=== PATIENT | male | born 1960 | race Caucasian/White ===

== ENCOUNTER 2023-05-27 14:47 | Emergency (ER) | payer OTHER, SELFPAY ==
[2023-05-27 14:52] VITALS: BP 121/73; PULSE 83; RESP 18; TEMP 36.5; O2SAT 96; BMI 28.9
--- NOTE | 2023-05-27 15:01 | ED_ITS ---
HPI - General Adult General Chief complaint: Skin/Abscess/Foreign Body Stated complaint: LASCERATION RIGHT SIDE OF FACE Time Seen by Provider: 05/27/23 14:56 Source: patient and family Mode of arrival: walk-in Limitations: no limitations History of Present Illness HPI narrative: 62-year-old male presents with laceration to the right cheek, states he was working in a ladder fell back striking him in the face. No loss of consciousness. He denies headache or visual disturbance. He has not on any blood thinners. Patient was advised the laceration would likely need sutures and presents to the Emergency Room. He has no other concerns or complaints. Very minimal pain localized to soft tissue injury. Patient denies any dental injury or facial numbness. Denies any loss of vision denies neck pain. Patient states he did not fall from a ladder. Location: Reports face Related Data Allergies Allergy/AdvReac Type Severity Reaction Status Date / Time No Known Drug Allergies Allergy Verified 05/27/23 14:56 Review of Systems ROS Constitutional Denies: fever or chills Eyes Denies: change in vision, blurry vision, blind spots, light sensitivity, eye discomfort or eye discharge Ears, nose, mouth, and throat Denies: neck pain Cardiovascular Denies: chest pain Respiratory Denies: shortness of breath or cough Gastrointestinal Denies: abdominal pain or nausea Musculoskeletal Denies: back pain, neck pain or extremity pain Integumentary/Breast Reports: other (positive laceration right cheek); Denies: rash Neurological Denies: headache or numbness in extremities Psychiatric Denies: anxiety Hematologic/Lymphatic Denies: easy bruising PFSH PFSH Social History Smoking status: Never smoker Exam Narrative Exam Narrative: Nurses notes and vital signs reviewed and patient is not hypoxic. General: The patient appears well and in no apparent distress. Patient is resting comfortably on cart. Skin: Warm, dry, no pallor noted.right cheek laceration noted Head: Normocephalic, atraumatic with exception of 1.5 cm lightnning bolt shaped laceration to the right cheek. Minimal bleeding controlled with direct pressure. No evidence of secondary head injury Neck: Supple, trachea mid-line, no tenderness, no lymphadenopathy Eye: Pupils are equal, round and reactive to light, EOMI, no palsy, no diplopia. Patient has a small subconjunctival hemorrhage to the lateral sclera. No complaint of visual disturbance or eye foreign body. Ears, Nose, Mouth, and Throat: TM are clear,moderate cerumen in the right, left is with normal light reflex, oral mucosa is moist, no posterior oropharynx erythema or hypertrophy, uvula is mid-line Cardiovascular: Regular Rate and Rhythm Respiratory: Patient is in no distress, no accessory muscle use, lungs are clear to auscultation, no wheezing, rales or rhonchi. Musculoskeletal: normal ROM, no tenderness, no swelling Neurological: A&O x4, facial sensation equal and symmetric maxiillary frontal and mandibular. Psychiatric: Cooperative Constitutional Vital Signs, click to edit/add: Last Vital Signs Temp 97.7 F 05/27/23 14:52 Pulse 83 05/27/23 14:52 Resp 18 05/27/23 14:52 BP 121/73 05/27/23 14:52 Pulse Ox 96 05/27/23 14:52 O2 Del Method Room Air 05/27/23 14:52 Course Vital Signs Vital signs: Vital Signs Temperature 97.7 F 05/27/23 14:52 Pulse Rate 83 05/27/23 14:52 Respiratory Rate 18 05/27/23 14:52 Blood Pressure 121/73 05/27/23 14:52 Pulse Oximetry 96 05/27/23 14:52 Oxygen Delivery Method Room Air 05/27/23 14:52 Temperature 97.7 F 05/27/23 14:52 Pulse Rate 83 05/27/23 14:52 Respiratory Rate 18 05/27/23 14:52 Blood Pressure 121/73 05/27/23 14:52 Pulse Oximetry 96 05/27/23 14:52 Oxygen Delivery Method Room Air 05/27/23 14:52 Medical Decision Making [facility] Narrative Medical decision making narrative: tetanus updated, patient has a 1.5 cm labeled shaped laceration to the right cheek, small subconjunctival hemorrhage lateral sclera, patient has no eye complaints or concerns. Denies discomfort or difficulty with vision. Believe his eyes closed, states she did not have any loss of consciousness. Wound care discussed, suture repair reviewed. Discussed suture removal in 5-7 days. Recheck with PCP. patient without significant at injury warranting a CT of the brain. Patient with benign exam but did have facial laceration requiring sutures. Laceration repaired. The patient is to followup with primary care physician in next 5-7 days or to return to the emergency department should any of the signs or symptoms worsen or new symptoms develop. Patient had questions answered. The patient agrees with the following Diagnosis and Treatment plan and the patient will be discharged home. Discharge Plan Discharge Chief Complaint: Skin/Abscess/Foreign Body Clinical Impression: Subconjunctival hemorrhage, Facial laceration Patient Disposition: Home, Self-Care Time of Disposition Decision: 15:40 Condition: Good Instructions: Laceration (ED), Subconjunctival Hemorrhage (ED) Additional Instructions: Cchsas-[id number] with your family doctor urgent care or Emergency Room in 5-7 days for suture removal Stand Alone Forms: Portal Instructions Referrals: Physician,Non-Staff, MD [Primary Care Provider] - 1 week Discharge Date/Time: 05/27/23 15:30 Procedures ED Laceration Laceration Laceration 1: Additional comments: Laceration repair: Done under sterile conditions. The use of Betadine was used to prep and clean the area. Local injection with lidocaine 1% was used, approximately 2 cc. The wound was irrigated copiously with normal saline. The wound was explored there was no evidence of foreign material. The laceration was approximated with 6-0 nylon. 5 simple interrupted sutures were placed. Patient tolerated the procedure well. The patient was neurovascularly intact post. the patient had bacitracin applied to the laceration and a dry sterile dressing was place. The patient will need to follow-up in the next 5-7 days for removal.
[2023-05-27] MEDS: ADACEL DIPH,PERTUSS(ACELL),TET VAC/PF 0.5 ML ADULT SYRINGE IM (15:27)
[2023-05-27] MEDS: LIDOCAINE HCL 1% PF 50 MG/5 ML VIAL INJ (15:30)
== END 2023-05-27 15:30 | disposition home or self-care (01) ==
PROVIDERS: Emergency Provider Emergency Medicine
DX: S01.411A Laceration without foreign body of right cheek and temporomandibular area, initial encounter (principal); Z23 Encounter for immunization; W20.8XXA Other cause of strike by thrown, projected or falling object, initial encounter; H11.30 Conjunctival hemorrhage, unspecified eye
CPT/HCPCS: 12011; 90471; 90715; 99283

== ENCOUNTER 2024-03-15 11:36 | Emergency (ER) | payer OTHER, SELFPAY ==
[2024-03-15 11:44] VITALS: BP 126/96; PULSE 69; TEMP 37.3; O2SAT 95; BMI 30.6
--- NOTE | 2024-03-15 11:51 | ED.WOUNDLAC1 ---
HPI - Wound/Laceration General Chief Complaint: Wound/Laceration Stated Complaint: LT HAND INJURY Time Seen by Provider: 03/15/24 11:44 Source: patient Mode of arrival: walk-in Limitations: no limitations History of Present Illness HPI narrative: 63-year-old male presents for laceration to the dorsum of his left hand. This was sustained on the water coming out of the water pressure when it accidentally contacted his hand. This happened just before coming into the emergency department. No other injuries were sustained. No weakness or numbness in his hand. Related Data Home Medications ?Medication ?Instructions ?Recorded ?Confirmed meloxicam 7.5 mg tablet 7.5 mg PO DAILY 03/15/24 03/15/24 sildenafil (pulm.hypertension) 20 20 mg PO DAILY 03/15/24 03/15/24 mg tablet Allergies Allergy/AdvReac Type Severity Reaction Status Date / Time No Known Drug Allergies Allergy Verified 05/27/23 14:56 Review of Systems ROS Narrative A ten point review of systems is negative except as noted above. PFSH PFSH Social History Smoking status: Never smoker Exam Narrative Exam Narrative: Nurses note and vital signs reviewed and patient is not hypoxic. General: The patient appears well and in no apparent distress. Patient is resting comfortably on cart. Skin: Warm, dry, no pallor noted. There is no rash noted. Head: Normocephalic, atraumatic Eye: Normal conjunctiva, no drainage Ears, Nose, Mouth, and Throat: oral mucosa is moist. Nares patent. Cardiovascular: Regular Rate and Rhythm Respiratory: Patient is in no distress, no accessory muscle use GI: Soft and nontender Musculoskeletal: There is a C-shaped 2.5 cm laceration on the dorsum of his left hand at the base of the third finger. Fingers have full range of motion. There are 2 tiny associated abrasions, otherwise no other wounds. Neurological: A&O, normal speech Psychiatric: Cooperative Constitutional Vital Signs, click to edit/add: Last Vital Signs Temp 99.1 F 03/15/24 11:44 Pulse 69 03/15/24 11:44 Resp 18 03/15/24 11:44 BP 126/96 H 03/15/24 11:44 Pulse Ox 95 03/15/24 11:44 O2 Del Method Room Air 03/15/24 11:44 Course Vital Signs Vital signs: Vital Signs Temperature 99.1 F 03/15/24 11:44 Pulse Rate 69 03/15/24 11:44 Respiratory Rate 18 03/15/24 11:44 Blood Pressure 126/96 H 03/15/24 11:44 Pulse Oximetry 95 03/15/24 11:44 Oxygen Delivery Method Room Air 03/15/24 11:44 Temperature 99.1 F 03/15/24 11:44 Pulse Rate 69 03/15/24 11:44 Respiratory Rate 18 03/15/24 11:44 Blood Pressure 126/96 H 03/15/24 11:44 Pulse Oximetry 95 03/15/24 11:44 Oxygen Delivery Method Room Air 03/15/24 11:44 MDM - Wound/Laceration MDM Narrative Medical decision making narrative: The wound is closed with sutures and tetanus status is up-to-date, he had 1 in May 2023. Sutures to be removed in a week. Treatment diagnosis and follow-up were discussed with the patient. Differential Diagnosis Differential diagnosis: Likely laceration and abrasion Discharge Plan Discharge Stand Alone Forms: Portal Instructions Chief Complaint: Wound/Laceration Clinical Impression: Laceration of left hand Patient Disposition: Home, Self-Care Time of Disposition Decision: 12:28 Condition: Good Mode of Transportation: Private Vehicle Prescriptions / Home Meds: No Action meloxicam 7.5 mg tablet 7.5 mg PO DAILY sildenafil (pulm.hypertension) 20 mg tablet 20 mg PO DAILY Print Language: Upper Sorbian Instructions: Laceration (ED) Additional Instructions: Sutures to be removed in a week Referrals: Physician,Non-Staff, MD [Primary Care Provider] - 1 week Procedures ED Procedure Instructions Procedures Procedures: The following procedure was performed by me. Local infiltration was carried out with 1% lidocaine without epinephrine resulting in complete skin anesthesia. The area was prepped with Betadine x 3 and draped sterilely. It was explored for foreign bodies number found and then closed with three 4-0 Ethilon sutures resulting in good skin reapproximation and no complications. He tolerated the procedure well.
[2024-03-15] MEDS: LIDOCAINE HCL 1% 100 MG/10 ML MDV INJ (12:26)
[2024-03-15 12:45] VITALS: PULSE 68; O2SAT 100
== END 2024-03-15 12:48 | disposition home or self-care (01) ==
PROVIDERS: Emergency Provider Emergency Medicine
DX: S61.412A Laceration without foreign body of left hand, initial encounter (principal); W45.8XXA Other foreign body or object entering through skin, initial encounter
CPT/HCPCS: 12001; 99284